=== PATIENT | female | born 1995 | race Caucasian/White ===

== ENCOUNTER 2018-09-18 20:15 | Observation (INO) ==
[2018-09-18] MEDS ORDERED: *HR* FentaNYL (PF) 100 MCG/2 ML VIAL IVP ONE (20:38)
[2018-09-18] MEDS ORDERED: Ondansetron 4 MG/2 ML VIAL IVP ONE (20:38)
[2018-09-18] MEDS ORDERED: 0.9 % Sodium Chloride 1,000 ML IVC ONE (20:38)
--- NOTE | 2018-09-18 20:42 | Emergency Department Note ---
Disposition Clinical Impression: Incomplete miscarriage Anemia Qualifiers: Anemia type: unspecified type Qualified Code(s): D64.9 - Anemia, unspecified Disposition: Admitted As Inpatient Condition: Fair Referrals: Romel Herndon MD [Primary Care Provider] - Forms: ED Satisfaction Letter Time of Disposition: 22:30 Female Urogenital HPI - General Chief complaint: ED Vaginal Bleeding Stated complaint: vaginal bleeding Time Seen by Provider: 09/18/18 20:18 Source: patient Mode of arrival: wheelchair Limitations: no limitations Nursing Notes Reviewed: Yes Vital Signs Reviewed: Yes - History of Present Illness HPI Narrative: 23-year-old with prior miscarriage presents for evaluation of vaginal bleeding. Approximatel 10-12 weeks along. Patient states that she is having a miscarriage. Patient seen her FINISHED CLOTH EXAMINER Dr. Burroughs yesterday was given march isoprostol. Patient states that she did take 3 doses of that medication. States she did pass tissue earlier today. Patient states that she has been having increased vaginal bleeding and lower abdominal discomfort throughout the day. Is not able to count how many patches gone through. Patient has been having some lightheadedness. Patient's also been passing clots. Denies any dysuria. No diarrhea or constipation. Patient denies any fevers. No nausea or vomiting. - Related Data Home Medications Medication Instructions Recorded Confirmed Ibuprofen [Motrin] 600 mg PO Q6H PRN 09/18/18 09/18/18 Misoprostol [Cytotec] 600 mcg PO Q6H 09/18/18 09/18/18 Allergies Allergy/AdvReac Type Severity Reaction Status Date / Time No Known Allergies Allergy Verified 06/12/18 19:56 All systems ED: reviewed and negative except as stated. Constitutional: Denies: fever Cardiovascular: Denies: chest pain Respiratory: Denies: cough, dyspnea Gastrointestinal: Reports: abdominal pain. Denies: nausea, vomiting Past Medical History - Past Medical History Source: patient Medical history: Reports: no medical history Psychiatric history: Reports: anxiety FINISHED CLOTH EXAMINER history: Reports: other - Social History Smoking Status: Current every day smoker Smokeless Tobacco Status: No Alcohol use: Reports: none Drug use: Reports: none Physical Exam - General Limitations: no limitations General appearance: alert, in no apparent distress - Head Head exam: atraumatic, normocephalic, normal inspection - Eye Eye exam: Present: normal appearance, PERRL, EOMI - ENT ENT exam: normal exam - Neck Neck exam: Present: normal inspection - Chest Chest inspection: Present: normal inspection - Respiratory Respiratory exam: Present: normal lung sounds bilaterally. Absent: respiratory distress - Cardiovascular Cardiovascular exam: Present: normal rhythm, tachycardia. Absent: systolic murmur - Abdominal Exam Abdominal exam: Present: soft, tenderness. Absent: guarding, rebound - Extremities Exam Extremities exam: Present: normal inspection. Absent: pedal edema - Expanded Lower Extremity Exam Neurovascular/Tendon exam: Present: normal capillary refill - Back Exam Back exam: Present: normal inspection - Neurological Exam Neurological exam: Present: alert - Skin Skin exam: Present: warm, dry, intact, normal color Course - Reevaluation(s) Reevaluation #1: Patient declined a Pelvic by me. Time: 20:56 Reevaluation #2: Dr. Fernandez performed the the pelvic exam at the patient's request. Appeared to pass for large clots. Also noted to have an open cervical on is. Appears to be a bluish colored tissue at the os. Attempted to remove manually with forceps for was unsuccessful. Likely the placenta. Time: 21:22 Reevaluation #3: Patient is updated on plan of care. Awaiting morals squad police officer disposition. Time: 00:06 - Consultations Consultation #1: Discussed the case with OB who will be done to evaluate the patient. Time: 21:22 Consultation #2: Patient case discussed with the on-call tunneller. Patient's ultrasound is back. States that the OB will be done to assess the patient. Time: 23:41 Consultation #3: Discussed the case with the OB provider states that she is aware of the patient will come down to assess. Patient is sitting on a bedpan and pelvic kit at bedside. Time: 00:18 Vital Signs Temperature 99.7 F H 09/18/18 20:21 Pulse Rate 122 09/18/18 20:21 Respiratory Rate 18 09/18/18 20:21 Blood Pressure 125/72 09/18/18 20:21 O2 Sat by Pulse Oximetry 100 09/18/18 20:21 Temperature 99.7 F H 09/18/18 20:21 Pulse Rate 92 09/18/18 20:53 Respiratory Rate 20 09/18/18 20:53 Blood Pressure 118/72 09/18/18 20:53 O2 Sat by Pulse Oximetry 100 10/24/18 20:53 Oxygen Delivery Oxygen Delivery Room Air Urogenital-Female - MDM Narrative Medical decision making narrative: Patient presented for vaginal bleeding. Patient does have history of recent miscarriage and was given Cytotec. Patient had an ultrasound and a pelvic exam both consistent with retained products. Products or not able to be retrieved from the pelvic exam. Patient does have a 3 g drop in hemoglobin since before the miscarriage. Patient continues to have some abdominal discomfort. Discussed with the on-call HANDY MAN provider multiple times during the ED course. Patient will likely need admission for observation, serial hemoglobins as well as definitive management of the retained products. Patient was given appropriate fluid resuscitation and pain control in the ED. OB was at bedside and was unsuccessful with attempting removing products of conception. Will admit to the OB service. - Lab Data Lab results reviewed: Yes I reviewed the patient's lab results. Result diagrams: 09/18/18 21:02 09/18/18 21:02 Lab Results 09/18/18 09/18/18 09/18/18 Range/Units 21:02 21:02 21:02 WBC 6.8 (4.3-11.1) K/mcL RBC 3.24 L (3.82-4.97) M/mcL Hgb 9.9 L (11.5-15.4) g/dL Hct 29.3 L (35.3-44.9) % MCV 90.4 (83.0-100.0) fL MCH 30.6 (28.0-33.3) pg MCHC 33.8 (31.6-35.5) g/dL RDW 13.4 (11.5-14.5) % Plt Count 214 (140-400) K/mcL MPV 9.0 L (9.4-12.4) fL Immature Gran % 0.3 (0-4) % Seg Neutrophils % 59.5 % Lymphocytes % 29.5 % Monocytes % 9.0 % Eosinophils % 1.3 % Basophils % 0.4 % Neutrophils # 4.0 (1.6-8.9) K/mcL Lymphocytes # 2.0 (0.6-4.6) K/mcL Monocytes # 0.6 (0.0-1.3) K/mcL Eosinophils # 0.1 (0.0-0.6) K/mcL Basophils # 0.0 (0.0-0.2) K/mcL Sodium 137 (136-145) mEq/L Potassium 3.4 L (3.5-5.1) mEq/L Chloride 105 (98-107) mEq/L Carbon Dioxide 26 (23-29) mEq/L BUN 13 (6-20) mg/dL Creatinine 0.46 L (0.60-1.20) mg/dL Est GFR ( Amer) > 60 (> 60) Est GFR (Non-Af Amer) > 60 (> 60) BUN/Creatinine Ratio 28 H (6-26) Glucose 88 (70-105) mg/dL Calculated Osmolality 284 (280-300) Lactic Acid 1.1 (0.5-2.2) mmol/L Calcium 8.6 (8.6-10.3) mg/dL Total Bilirubin 0.2 L (0.3-1.0) mg/dL Direct Bilirubin 0.1 (0.0-0.2) mg/dL Indirect Bilirubin 0.1 (0.0-1.2) mg/dL AST 12 L (13-39) Units/L ALT 9 (7-52) Units/L Alkaline Phosphatase 39 (34-104) Units/L Serum Total Protein 5.8 L (6.4-8.9) g/dL Albumin 3.6 (3.5-5.7) g/dL Globulin 2.2 L (2.4-3.5) g/dL Albumin/Globulin Ratio 1.6 (1.1-2.2) Blood Type Antibody Screen 09/18/18 Range/Units 21:02 WBC (4.3-11.1) K/mcL RBC (3.82-4.97) M/mcL Hgb (11.5-15.4) g/dL Hct (35.3-44.9) % MCV (83.0-100.0) fL MCH (28.0-33.3) pg MCHC (31.6-35.5) g/dL RDW (11.5-14.5) % Plt Count (140-400) K/mcL MPV (9.4-12.4) fL Immature Gran % (0-4) % Seg Neutrophils % % Lymphocytes % % Monocytes % % Eosinophils % % Basophils % % Neutrophils # (1.6-8.9) K/mcL Lymphocytes # (0.6-4.6) K/mcL Monocytes # (0.0-1.3) K/mcL Eosinophils # (0.0-0.6) K/mcL Basophils # (0.0-0.2) K/mcL Sodium (136-145) mEq/L Potassium (3.5-5.1) mEq/L Chloride (98-107) mEq/L Carbon Dioxide (23-29) mEq/L BUN (6-20) mg/dL Creatinine (0.60-1.20) mg/dL Est GFR ( Amer) (> 60) Est GFR (Non-Af Amer) (> 60) BUN/Creatinine Ratio (6-26) Glucose (70-105) mg/dL Calculated Osmolality (280-300) Lactic Acid (0.5-2.2) mmol/L Calcium (8.6-10.3) mg/dL Total Bilirubin (0.3-1.0) mg/dL Direct Bilirubin (0.0-0.2) mg/dL Indirect Bilirubin (0.0-1.2) mg/dL AST (13-39) Units/L ALT (7-52) Units/L Alkaline Phosphatase (34-104) Units/L Serum Total Protein (6.4-8.9) g/dL Albumin (3.5-5.7) g/dL Globulin (2.4-3.5) g/dL Albumin/Globulin Ratio (1.1-2.2) Blood Type A POSITIVE Antibody Screen NEGATIVE - Radiology Data Radiology results reviewed: Yes I reviewed the patient's radiology results. Pelvis Ultrasound 09/18/18 21:24 IMPRESSION: Extensive echogenic material within the endometrial canal with areas of persistent Doppler flow suggesting retained products of conception and hemorrhagic clots in the endometrial canal. Complex cystic lesion in the right ovary measuring 22 x 27 x 19 mm with homogeneous internal echoes suggesting a hemorrhagic corpus luteal cyst. Unremarkable appearance of the left ovary. No evidence of free fluid. D/ / Charly Carter MD / Charly Carter MD Interpreting Provider: Charly Carter MD S.B.A.R. - S.B.A.R. Situation: Demographics Background: Presenting Complaint Assessment: Vital Signs, Course and respsone to treatment, Patient/Family Expectation Recommendation: Barrier(s) to disposition, Recommendation based on pending studi es, treatments, or consults S.B.A.RJr Report Given to: Karine GuillauemAMarine Repor Time: 01:30
--- NOTE | 2018-09-18 21:15 | Emergency Department Note ---
Disposition Clinical Impression: Spontaneous miscarriage Disposition: Admitted As Inpatient Referrals: Romel Herndon MD [Primary Care Provider] - Forms: ED Satisfaction Letter Female Urogenital HPI - General Chief complaint: ED Vaginal Bleeding Stated complaint: vaginal bleeding Time Seen by Provider: 09/18/18 20:18 Source: patient Mode of arrival: wheelchair Limitations: no limitations - Related Data Home Medications Medication Instructions Recorded Confirmed Tylenol 06/12/18 Previous Rx's Medication Instructions Recorded Amoxicillin [Amoxil] 500 mg PO BID 10 Days #20 capsule 06/12/18 Allergies Allergy/AdvReac Type Severity Reaction Status Date / Time No Known Allergies Allergy Verified 06/12/18 19:56 Constitutional: Denies: fever Cardiovascular: Denies: chest pain Respiratory: Denies: cough, dyspnea Gastrointestinal: Reports: abdominal pain. 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: Reports: other - Social History Smoking Status: Current every day smoker Smokeless Tobacco Status: No Alcohol use: Reports: none Drug use: Reports: none Physical Exam removed quarter-sized to half-dollar sized blood clots - General Limitations: no limitations General appearance: alert, in no apparent distress - Female Sprayer Hand present during exam: Yes External Exam: Present: normal external exam Speculum Exam: Present: cervical OS open, vaginal bleeding, other (large blueish discolored membranous material likely the placenta) Course Vital Signs Temperature 99.7 F H 09/18/18 20:21 Pulse Rate 122 09/18/18 20:21 Respiratory Rate 18 09/18/18 20:21 Blood Pressure 125/72 09/18/18 20:21 O2 Sat by Pulse Oximetry 100 09/18/18 20:21 Temperature 99.7 F H 09/18/18 20:21 Pulse Rate 92 09/18/18 20:53 Respiratory Rate 20 09/18/18 20:53 Blood Pressure 118/72 09/18/18 20:53 O2 Sat by Pulse Oximetry 100 09/18/18 20:53 Oxygen Delivery Oxygen Delivery Room Air Attestation Statement - Attestation Attestation: I examined this patient and my medical decision-making was reviewed with the Resident Physician. I agree with the documented findings, disposition and treatment plan as described except to the extent set forth below. 23 year old female prsents to the ED with complaints of vagina bleding with twin gestation and two weeks ago had demise and was placed on cytotex yesterday with Dr. Pat. cervical os is open and appear that placenta is trying to pass. BEcause she is tachycardiac we have treat her with IVF, morphine/fentyl and she is now in the 90 witih stable blood pressure. We will consult to OBGYN about admission to their service for removal of the clot
[2018-09-18] MEDS ORDERED: *HR* Morphine 2 MG/ML SYRINGE IVP ONE (21:16)
[2018-09-18 21:18] LABS: Basophils % 0.4 %; Eosinophils # 0.1 K/mcL (0.0-0.6); Eosinophils % 1.3 %; Hematocrit 29.3 % (35.3-44.9); Hemoglobin 9.9 g/dL (11.5-15.4); Immature Granulocytes % 0.3 % (0-4); Lymphocytes % 29.5 %; Mean Corpuscular HGB Conc 33.8 g/dL (31.6-35.5); Mean Corpuscular Hemoglobin 30.6 pg (28.0-33.3); Mean Corpuscular Volume 90.4 fL (83.0-100.0); Monocytes # 0.6 K/mcL (0.0-1.3); Platelet Count 214 K/mcL (140-400); Red Blood Count 3.24 M/mcL (3.82-4.97); Red Cell Distribution Width 13.4 % (11.5-14.5); Segmented Neutrophils % 59.5 %
[2018-09-18 21:39] LABS: Alanine Aminotransferase 9 Units/L (7-52); Albumin 3.6 g/dL (3.5-5.7); Albumin/Globulin Ratio 1.6 (1.1-2.2); Alkaline Phosphatase 39 Units/L (34-104); Aspartate Amino Transferase 12 Units/L (13-39); BUN/Creatinine Ratio 28 (6-26); Bilirubin,Direct 0.1 mg/dL (0.0-0.2); Bilirubin,Indirect 0.1 mg/dL (0.0-1.2); Bilirubin,Total 0.2 mg/dL (0.3-1.0); Blood Urea Nitrogen 13 mg/dL (6-20); Calcium 8.6 mg/dL (8.6-10.3); Carbon Dioxide 26 mEq/L (23-29); Chloride 105 mEq/L (98-107); Globulin 2.2 g/dL (2.4-3.5); Glucose 88 mg/dL (70-105); Osmolality,Calculated 284 (280-300); Potassium 3.4 mEq/L (3.5-5.1); Sodium 137 mEq/L (136-145); Total Protein 5.8 g/dL (6.4-8.9); eGFR For Non-African Americans > 60 (> 60)
[2018-09-18] MEDS ORDERED: 0.9 % Sodium Chloride 1,000 ML IVC SCH (22:30)
[2018-09-19] MEDS ORDERED: *HR* HYDROmorphone (PF) 1 MG/ML SYRINGE IVP ONE (01:06)
[2018-09-19] MEDS ORDERED: Doxycycline 100 MG in 0.9 % Sodium Chloride Mini Bag 100 ML IVPB ONE (02:10)
[2018-09-19] MEDS ORDERED: Ringers Solution, Lactated 1,000 ML IVC SCH ×2 (02:15→04:15)
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
--- NOTE | 2018-09-19 03:56 | Anesthesia Evaluation PreOp ---
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 History: Denies Any Significant HX Other Medical History: Denies Any Significant HX Anesthesia History: No Prior Anesthetic Complications, Past Anesthesia (Left Radius fracture with fadumo placement) : No (missed 10 weeks) Alcohol Use: none Drug use: none Medications and Allergies Misoprostol [Cytotec] 600 mcg PO Q6H 09/18/18 [History] Allergy/AdvReac Type Severity Reaction Status Date / Time No Known Allergies Allergy Verified 06/12/18 19:56 - Meds/Allergy Pre-op Review Medications Reviewed: Yes Allergies Reviewed: Yes Beta Blockers on Current Med List: No Anesthesia Results - Labs 09/18/18 21:02 09/18/18 21:02 Anesthesia Exam Vital Signs Temperature 99.7 F H 09/18/18 20:21 Pulse Rate 122 09/18/18 20:21 Respiratory Rate 18 09/18/18 20:21 Blood Pressure 125/72 09/18/18 20:21 O2 Sat by Pulse Oximetry 100 09/18/18 20:21 Temperature 98.4 F 09/19/18 02:45 Pulse Rate 65 09/19/18 02:45 Respiratory Rate 16 09/19/18 02:45 Blood Pressure 104/55 09/19/18 02:45 O2 Sat by Pulse Oximetry 98 09/19/18 02:45 Oxygen Delivery Oxygen Delivery Room Air Height: 5'8" Weight: 65.3kg NPO (# of Hours): 8 Pain Scale: 0 Pain Scale Used: Numeric (1 - 10) - HEENT Pupil (Motor): Pupils equal Mallampati: II Teeth: Normal Oral Opening: Greater than 3 - GO CART MECHANIC LOC: Oriented GO CART MECHANIC Motor: Normal RUE, Normal LUE, Normal RLE, Normal LLE, Normal Face GO CART MECHANIC Sensory: Normal: RUE, LUE, RLE, LLE, Face - Cardiac Rhythm: Regular Murmur: None JVD: No Carotid Bruit: No - Pulmonary Breath Sounds: bilateral Clear Respiratory Effort: Symmetrical Anesthesia Assess/Plan ASA Score: 2 Modified [place] Scale for Level of Consciousness: Cooperative, oriented, and tranquil Anesthetic Plan: General Autologous Blood: No Monitoring Plan: Standard Monitors Recovery Plan: PACU
[2018-09-19] MEDS ORDERED: *HR* Meperidine 25 MG/ML SYRINGE IVP PRN (04:09)
[2018-09-19] MEDS ORDERED: Acetaminophen IV 1,000 MG/100 ML INFUS..BTL IVPB ONE (04:09)
[2018-09-19] MEDS ORDERED: *HR* HYDROmorphone (PF) 1 MG/ML SYRINGE IVP PRN (04:09)
[2018-09-19] MEDS ORDERED: *HR* OxyCODONE Immed Rel 5 MG TABLET PO PRN (04:09)
[2018-09-19] MEDS ORDERED: Ondansetron 4 MG/2 ML VIAL IVP ONE (04:09)
[2018-09-19] MEDS ORDERED: *HR* Promethazine 25 MG/ML VIAL IVP PRN (04:09)
[2018-09-19] MEDS ORDERED: *HR* Midazolam HCl 2 MG/2 ML VIAL ONE (04:23)
[2018-09-19] MEDS ORDERED: *HR* FentaNYL (PF) 100 MCG/2 ML VIAL ONE (04:23)
[2018-09-19] MEDS ORDERED: Ondansetron 4 MG/2 ML VIAL ONE ×2 (04:23→04:41)
[2018-09-19] MEDS ORDERED: Dexamethasone 4 MG/ML VIAL ONE ×2 (04:23→04:41)
[2018-09-19] MEDS ORDERED: *HR* Propofol 200 MG/20 ML VIAL IVP ONE (04:24)
[2018-09-19] MEDS ORDERED: *HR* Oxytocin 10 UNIT/ML VIAL IM ONE (04:56)
--- NOTE | 2018-09-19 05:20 | OB/GYN Procedure Note ---
Suction D&C - Diagnosis Date of procedure: 09/19/18 Pre-op diagnosis: incomplete Post-op diagnosis: same - Procedure Procedure: suction D&C Surgeon: Martha Orosco Was there an assistant signal maintainer present: No Anesthesia Type: General Estimated blood loss (cc): 50 Complications: none Fluids: other Amount in: 1,000 Specimen: products of conception Disposition: same day Narrative: Patient was prepped and draped in the normal fashion, general MAC anesthesia was found to be adequate. Time out was performed, and patient was in the dorsal lithotomy position. Heavy weighted speculum was placed in the vagina. Single toothed tenaculum was then used on the anterior lip of the cervix and the uterus was pulled taught. Cervical os was dilated to maximum of 15 hameed. Suction D&C was then performed using a 10mm suction. Multiple passes were taken as products of conception were removed to its entirely. Approximately 3 passes were taken. We then used a sharp curettage on the endometrium to ensure all tissue was appropriately removed. This was done for 2 complete passes until the gritty texture was appreciated circumferentially. A transabdominal ultrasound was then performed intraoperatively and the endometrium was found to be thinned without POC in the uterine cavity. One final pass was taken, again with the sharp curettage, and lastly with the suction vacuum. Anesthesia did start IV pitocin when requested during the case. The uterus was adequately firm and jose juan to normal, non- size. Single-toothed tenaculum was removed and both sites were found to be hemostatic after adequate pressure with a ringed forceps on the L tenaculum site. Counts were correct x2. Hemostasis at the site of the OS was appreciated. Fundus firm, no active bleeding. EBL: 50mL Pathology: POC was sent to pathology including chorionic villi and remaining tissue MD DURAN
[2018-09-19] MEDS ORDERED: Acetaminophen 325 MG TABLET PO ONE (06:20)
[2018-09-19] MEDS ORDERED: Ibuprofen 600 MG TABLET PO ONE (06:20)
--- NOTE | 2018-09-19 06:28 | Anesthesia Evaluation Post Op ---
Date of Encounter: 09/19/18 Time of Encounter: 06:26 - Vital Signs Vital Signs: BP 96/64 P 73 R 16 Spo2 98 T 98.1 - Lungs Lungs: Clear Ascult./Percussion - Airway Airway: Non-obstructed - Cardiovascular Regular Rate - Mental Status Mental Status: Alert & Oriented, Answers Appropriately - Pain Pain Scale: 3 Pain Scale used: Numeric (1 - 10) - Nausea Vomiting Nausea Vomiting: Not Present - Hydration Hydration: Tolerates oral liquids, Has not voided - Discharge PostOp Status: Transfer Patient to floor
[2018-09-19 08:26] VITALS: BP 92/51
== END 2018-09-19 09:38 | disposition home or self-care (01) ==
LOC: 1NENUOBS 20:15 → EMEROOARM 20:15 → 1NENUOBS 09-19 02:41
PROVIDERS: ADMIT Registered Nurse; ATTEND Registered Nurse

== ENCOUNTER → 2019-12-22 23:17 | Observation (INO) ==
[2019-12-22 20:50] LABS: Bilirubin,Urine Negative (Negative); Blood,Urine Negative (Negative); Clarity,Urine Cloudy (Clear); Color,Urine Yellow (Yellow); Glucose,Urine (UA) Normal (Normal); Ketones,Urine Negative (Negative); Leukocyte Esterase,Urine Negative (Negative); Nitrite,Urine Negative (Negative); PH,Urine 5.5 pH Units (5.0-8.0); Protein,Urine Negative (Neg-Trace); Specific Gravity,Urine > 1.030 (1.010-1.025); Urobilinogen,Urine Normal (Normal)
[2019-12-22 20:53] LABS: Bacteria,Urine None Seen per hpf (None-Few); Hyaline Casts,Urine None Seen per lpf (None-Few); RBC,Urine 0-3 per hpf (0-3); Squamous Epithelial Cell,Urine Many per lpf (None-Few)
[2019-12-22 21:02] LABS: Amphetamine Screen,Urine Negative ng/mL (Cutoff=1000); Barbiturate Screen,Urine Negative ng/mL (Cutoff=200); Benzodiazepines Screen,Urine Negative ng/mL (Cutoff=200); Cannabinoid Screen,Urine Negative ng/mL (Cutoff = 50); Cocaine Screen,Urine Negative ng/mL (Cutoff= 300); Opiate Screen,Urine Negative ng/mL (Cutoff=300); Phencyclidine Screen,Urine Negative ng/mL (Cutoff=25)
[2019-12-22 21:06] LABS: Calcium Oxalate Crystals,Urine Present
== END | disposition home or self-care (01) ==
LOC: 1NENULAB
PROVIDERS: ADMIT Registered Nurse; ATTEND Registered Nurse